=== PATIENT | female | born 1990 | race Caucasian/White ===

== ENCOUNTER 2017-02-08 00:53 | Emergency (ER) | payer OTHER ==
[2017-02-08 01:03] VITALS: TEMP 97.7
--- NOTE | 2017-02-08 02:25 | EDPHY ---
H & P Stated Complaint: pt states that she woke up feeling SOB, no other complaints Time Seen by Provider: 02/08/17 01:43 HPI/ROS: Chief Complaint: Shortness of breath HPI: Healthy 26-year-old woman woke at midnight feeling shortness of breath. Symptoms lasted for a few minutes after waking. It has slowly resolved however she has had some episodes that come in waves. No recent illness. No cough. No chest pain. Patient currently is without complaint. Last episode was about 7 minutes ago. No recent travel. She is not taking control. She does not smoke. ROS: 10 point Review of Systems is negative except as noted in the HPI. PMH: GERD Social History: No smoking, occasional alcohol, no recreational drug use Family History: Coronary artery disease Physical Exam: Gen: Awake, Alert, No Distress HEENT: Nose: no rhinorrhea Eyes: PERRLA, EOMI Mouth: Moist mucosa Neck: Supple, no JVD Chest: nontender, lungs clear to auscultation Heart: S1, S2 normal, no murmur Abd: Soft, non-tender, no guarding Back: no CVA tenderness, no midline tenderness Ext: no edema, non-tender Skin: no rash Neuro: CN II-XII intact, Sensation grossly intact, Strength 5/5 in bilateral upper and lower extremities - Personal History LMP (Females 10-55): 8-14 Days Ago Current Tetanus Diphtheria and Acellular Pertussis (TDAP): Yes - Medical/Surgical History Hx Asthma: No Hx Chronic Respiratory Disease: No Hx Diabetes: No Hx Cardiac Disease: No Hx Renal Disease: No Hx Cirrhosis: No Hx Alcoholism: No Hx HIV/AIDS: No Hx Splenectomy or Spleen Trauma: No Other PMH: GERD - Social History Smoking Status: Never smoked Constitutional: Initial Vital Signs Temperature (C) 36.5 C 02/08/17 00:57 Heart Rate 58 L 02/08/17 00:57 Respiratory Rate 18 02/08/17 00:57 Blood Pressure 117/75 02/08/17 00:57 O2 Sat (%) 99 02/08/17 00:57 O2 Delivery Mode Room Air Allergies/Adverse Reactions: No Known Allergies Allergy (Unverified 02/08/17 00:56) Home Medications: Medication Instructions Recorded Omeprazole 02/08/17 Sodium Bicarbonate 02/08/17 Medical Decision Making ED Course/Re-evaluation: 26-year-old woke with shortness of breath. Symptoms of blood resolved but she is having very mild symptoms here with associated episodes of sinus arrhythmia. She has no chest pain. She has no risk factors for PE. Her physical exam is completely unremarkable and she is largely asymptomatic here. We have talked at length do not think there is indications for blood work, imaging or further cardiac testing at this time. I will discharge her to follow up with [facility] as an outpatient. Return for worsening chest pain, shortness of breath, palpitations, or any other concerns. Departure - Departure Disposition: Home, Routine, Self-Care Clinical Impression: Dyspnea Condition: Good Instructions: Dyspnea (ED) Additional Instructions: Follow up with a [facility] primary care physician in 3-4 days for further evaluation. Return to the emergency department for increasing shortness of breath, cough, lightheadedness, fainting, chest pain, or any other concerns. Referrals: [facility] ,. [Edm Groups for Call Sched] - As per Instructions
[2017-02-08 02:34] VITALS: BP 112/69; PULSE 53; RESP 16; O2SAT 96
== END 2017-02-08 02:34 | disposition home or self-care (01) ==
DX: R06.00 Dyspnea, unspecified (principal)

== ENCOUNTER 2017-03-13 15:04 | Emergency (ER) | payer OTHER ==
[2017-03-13 15:26] VITALS: BP 99/64; PULSE 68; RESP 16; TEMP 98.1; O2SAT 97
--- NOTE | 2017-03-13 15:59 | EDPHY ---
H & P Time Seen by Provider: 03/13/17 15:38 HPI/ROS: CHIEF COMPLAINT: Left eyebrow laceration HISTORY OF PRESENT ILLNESS: 27-year-old female generally healthy states that late last night/early this morning she opened the car door and impacted her left eyebrow sustaining a near vertically-oriented laceration, hemostatic. No loss of consciousness. No amnesia. No headache. No nausea or vomiting. No midline C-spine pain. No visual disturbance. PHYSICAL EXAM 1) GENERAL: Well-developed, well-nourished, alert and oriented. Appears to be in no acute distress. Answering questions appropriately. 2) HEAD: Normocephalic, left eyebrow near vertically-oriented 1.5 cm linear laceration, hemostatic. 3) HEENT: Pupils equal, round, reactive to light bilaterally. Negative Horners. Nasopharynx, oropharynx, clear. No deformity or angulation of nose. No septal hematoma. No rhinorrhea. No oral trauma. Ears bilaterally with normal tympanic membranes. No hemotympanum. No fluid or blood in the external auditory canal. No raccoon eyes. No García sign. Teeth are normally aligned with no gross malocclusion, TMJ bilaterally nontender, facial bones nontender including the zygomatic arch, maxilla mandible. 4) NECK: No cervical collar is on. Posterior cervical spine is nontender, no stepoff, no effusion. Full range of motion which does not elicit any midline cervical spine pain, no posterior midline tenderness, no step-off. Smoking Status: Never smoked Constitutional: Initial Vital Signs Temperature (C) 36.7 C 03/13/17 15:15 Heart Rate 68 03/13/17 15:15 Respiratory Rate 16 03/13/17 15:15 Blood Pressure 99/64 L 03/13/17 15:15 O2 Sat (%) 97 03/13/17 15:15 O2 Delivery Mode Room Air Allergies/Adverse Reactions: No Known Allergies Allergy (Verified 03/13/17 15:22) Home Medications: Medication Instructions Recorded Omeprazole 02/08/17 Sodium Bicarbonate 02/08/17 MDM/Departure - MDM Procedures: Procedure: Laceration repair with tissue adhesive Verbal consent was obtained from the patient. The 1.5 cm laceration on the left eyebrow. The wound was scrubbed and explored to its base with a gloved finger. No foreign body seen, no foreign bodies palpated. There were no deep structures involved. The wound was repaired with tissue adhesive. The procedure was performed by myself. Patient has been informed that scarring will occur, although every effort has been made to minimize this. - Depart Disposition: Home, Routine, Self-Care Clinical Impression: Laceration of left eyebrow Qualifiers: Encounter type: initial encounter Qualified Code(s): S01.112A - Laceration without foreign body of left eyelid and periocular area, initial encounter Condition: Good Instructions: Laceration (ED) Additional Instructions: Return to the ER if you develop redness, swelling, discharge, warmth to the wound, or any other symptoms that concern you. Referrals: DARIELA [facility]TR[facility] [Other] - 1-2 days without fail
[2017-03-13] MEDS ORDERED: SKIN ADHESIVE (DERMABOND) 1 EACH TP ONE (16:13)
== END 2017-03-13 16:00 | disposition home or self-care (01) ==
PROC: 0HQ1XZZ Repair Face Skin, External Approach (ICD-10-PCS; principal; 2017-03-13)
DX: S01.112A Laceration without foreign body of left eyelid and periocular area, initial encounter (principal); W22.8XXA Striking against or struck by other objects, initial encounter; Y93.89 Activity, other specified